=== PATIENT | male | born 1935 | race Caucasian/White ===

== ENCOUNTER 2017-06-30 17:00 | Inpatient (IN) ==
[2017-06-30] MEDS ORDERED: Ipratropium/Albuterol Neb 3 ML IH PRN (22:06)
[2017-07-01 06:51] LABS: Basophils % 0.7 %; Eosinophils # 0.1 K/mcL (0.0-0.6); Eosinophils % 1.9 %; Hematocrit 44.2 % (37.5-50.1); Hemoglobin 14.2 g/dL (12.9-16.9); Immature Granulocytes % 1.3 % (0-4); Lymphocytes # 1.3 K/mcL (0.6-4.6); Lymphocytes % 22.6 %; Mean Corpuscular HGB Conc 32.1 g/dL (31.6-35.5); Mean Corpuscular Volume 96.5 fL (83.0-100.0); Mean Platelet Volume 10.6 fL (9.4-12.4); Monocytes # 0.7 K/mcL (0.0-1.3); Monocytes % 12.1 %; Neutrophils # 3.6 K/mcL (1.6-8.9); Platelet Count 143 K/mcL (140-400); Red Blood Count 4.58 M/mcL (4.19-5.50); Segmented Neutrophils % 61.4 %
[2017-07-01 06:52] LABS: INR 2.4; Prothrombin Time 26.6 Seconds (9.4-12.1)
[2017-07-01 06:53] LABS: BUN/Creatinine Ratio 18 (6-26); Blood Urea Nitrogen 21 mg/dL (8-26); Calcium 9.3 mg/dL (8.6-10.8); Carbon Dioxide 29 mEq/L (19-29); Chloride 101 mEq/L (98-109); Glucose 163 mg/dL (70-99); Osmolality,Calculated 297 (280-300); Potassium 4.5 mEq/L (3.5-4.5); Sodium 140 mEq/L (136-145); eGFR For African Americans > 60 (> 60); eGFR For Non-African Americans 58 (> 60)
[2017-07-01 06:54] LABS: Activated Partial Thrombo Time 33.3 Seconds (26.0-36.0)
[2017-07-01] MEDS ORDERED: levoFLOXacin 750 MG TABLET PO SCH (09:00)
[2017-07-01] MEDS: Cyanocobalamin (B-12) 1,000 MCG TABLET PO SCH (09:07)
[2017-07-01] MEDS: amLODIPine 5 MG TABLET PO SCH (09:07)
[2017-07-01] MEDS: *HR* Metformin 500 MG TABLET PO SCH ×2 (09:07→18:07)
[2017-07-01] MEDS: Finasteride 5 MG TABLET PO SCH (09:08)
--- NOTE | 2017-07-01 14:08 | Internal Med History&Physical ---
Date of Encounter: 07/01/17 Time of Encounter: 14:06 Assessment and Plan (1) Cerebrovascular accident Current visit: No Status: Acute No acute issues. Patient shows no focal deficits during neurological exam. States that he still is on a dysphagia diet and continues to have some difficulty with thin liquids. Patient to continue with physical therapy and will continue with current plan of care Qualifiers: CVA mechanism: unspecified Qualified Code(s): I63.9 - Cerebral infarction, unspecified (2) BPH (benign prostatic hyperplasia) Current visit: Yes Status: Acute Patient with urinary retention during previous hospitalization after having his Martel catheter removed. Patient currently has Martel catheter in place and is awaiting follow-up with urology for further recommendations. Patient currently on Flomax Qualifiers: Lower urinary tract symptom presence: symptoms present Lower urinary tract symptom detail: incomplete bladder emptying Qualified Code(s): N40.1 - Benign prostatic hyperplasia with lower urinary tract symptoms; R39.14 - Feeling of incomplete bladder emptying; R39.14 - Feeling of incomplete bladder emptying Internal Medicine - H&P: HPI Admitted From: Home Plans for Post Hospital Care: Home History of present illness: Mr. Blackwood is a 81 year old male Past Med Surg Social Fam HX - Past Medical History Medical history: asthma, COPD, DVT, diabetes, hypertension, other (BPH) Psychiatric history: no psych history - Past Surgical History Surgical History: knee replacement - Social History Smoking Status: Unknown if ever smoked Smokeless Tobacco Status: No Alcohol use: none Drug use: none - Family History Mother History Unknown: Yes Father History Unknown: Yes Internal Medicine - H&P: Meds Atenolol [Tenormin] 50 mg PO DAILY 05/24/15 [History] Metformin HCl [Glucophage] 1,000 mg PO BID 05/24/15 [History] Montelukast [Singulair] 10 mg PO DAILY 05/24/15 [History] Rosuvastatin [Crestor] 20 mg PO DAILY 05/24/15 [History] Tamsulosin [Flomax] 0.8 mg PO DAILY 05/24/15 [History] Warfarin [Coumadin] 5 mg PO 1800 05/24/15 [History] amLODIPine [Norvasc] 5 mg PO DAILY 05/24/15 [History] Albuterol Sulfate [Albuterol Inhaler] 2 puff IH Q4HR PRN 06/25/17 [History] Cyanocobalamin (B-12) [Vitamin B12] 1,000 mcg PO DAILY 06/30/17 [History] Finasteride [Proscar] 5 mg PO DAILY 06/30/17 [History] Ipratropium/Albuterol Neb [Duoneb] 3 ml IH Q4HR PRN 06/30/17 [History] Levofloxacin [Levaquin] 750 mg PO ONCE 06/30/17 [History] 3 Allergy/AdvReac Type Severity Reaction Status Date / Time No Known Allergies Allergy Verified 06/30/17 21:53 All Systems PM: A 10-system review of systems was performed and is negative for pertinent findings except as documented above in the HPI. - Constitutional Constitutional: as per HPI - EENT Eyes: no change in vision, no discharge, no pain, no photophobia Ears: no ear discharge, no ear pain, no tinnitus Nose, mouth and throat: no dysphagia, no nasal discharge, no neck pain, no sore throat - Cardiovascular Cardiovascular ROS IM: no chest pain, no diaphoresis, no dyspnea, no lightheadedness, no palpitations, no syncope - Respiratory Respiratory: no cough, no dyspnea, no wheezing, no excessive phlegm production - Gastrointestinal Gastrointestinal: no abdominal pain, no diarrhea, no hematemesis, no hematochezia, no melena, no nausea, no vomiting - Genitourinary Additional comments: Patient states history of urinary hesitation and nocturia. States he was having urinary retention during his hospitalization. - Musculoskeletal Musculoskeletal ROS IM: no numbness, no tingling - Integumentary Integumentary IM: no rash, no unusual bruising - Neurological Neurological ROS: no confusion, no convulsions, no focal weakness, no numbness, no tingling, no tremor(s) Additional comments: Patient states he continues to have some difficulty with swallowing thin liquids. - Constitutional Vitals: Temp Pulse Resp BP Pulse Ox 97.9 F 78 16 123/80 97 07/01/17 11:35 07/01/17 11:35 07/01/17 11:35 07/01/17 11:35 07/01/17 11:35 General appearance: Present: A&O X 3 - Head Head exam: Present: atraumatic, normocephalic - Eye Eye exam: Present: PERRL, conjuntiva pink, sclera anicteric Pupils: Present: PERRL - Neck Neck exam general surgery: Present: supple, trachea midline. Absent: lymphadenopathy - Respiratory Respiratory exam: Present: CTAB. Absent: accessory muscle use, rales, rhonchi, wheezes - Cardiovascular Cardiovascular exam: Present: RRR, +S1, +S2. Absent: diastolic murmur, gallop, rubs, systolic murmur - GI/Abdominal GI/Abdominal exam: Present: normal bowel sounds, soft, no peritoneal signs. Absent: distended, tenderness - Additional comments: Patient has Martel catheter in place with clear yellow urine received - Extremities Exam Extremities exam: Present: warm, radial pulses palpable and symmetrical. Absent : calf tenderness, cyanotic, pedal edema - Neurological Exam Neurological exam: Present: CN II-XII intact, oriented X3, no focal deficits. Absent: pronater drift, facial droop, speech deficit Additional comments: Speech is clear and appropriate - Skin Skin exam: Present: dry, intact Internal Med - H&P Results - Labs CBC & Chem 7: 07/01/17 06:15 07/01/17 06:15 Labs: Short CBC 07/01/17 Range/Units 06:15 WBC 5.9 (4.3-11.1) K/mcL Hgb 14.2 (12.9-16.9) g/dL Hct 44.2 (37.5-50.1) % Plt Count 143 (140-400) K/mcL Neutrophils # 3.6 (1.6-8.9) K/mcL BMP 07/01/17 06:15 Sodium 140 Potassium 4.5 Chloride 101 Carbon Dioxide 29 BUN 21 Creatinine 1.20 Glucose 163 H Calcium 9.3 - VTE Documentation of Mechanical Device: Graduated compression elastic hosiery
[2017-07-01] MEDS: *HR* Warfarin 5 MG TABLET PO SCH (18:07)
[2017-07-02 05:45] LABS: INR 2.6; Prothrombin Time 28.6 Seconds (9.4-12.1)
[2017-07-02] MEDS: Finasteride 5 MG TABLET PO SCH (08:49)
[2017-07-02] MEDS: amLODIPine 5 MG TABLET PO SCH (08:49)
[2017-07-02] MEDS: Cyanocobalamin (B-12) 1,000 MCG TABLET PO SCH (08:49)
[2017-07-02] MEDS: *HR* Metformin 500 MG TABLET PO SCH ×2 (08:49→18:24)
--- NOTE | 2017-07-02 11:30 | Internal Med Progress Note ---
Date of Encounter: 07/02/17 Time of Encounter: 11:27 - Assessment and plan (1) Cerebrovascular accident Current Visit: No Status: Acute Assessment and plan: No acute issues. No focal neurological deficits noted on exam. Patient continues with dysphagia and is being advanced on his dysphagia diet. Patient to continue with physical therapy and will continue with current plan of care. Qualifiers: CVA mechanism: unspecified Qualified Code(s): I63.9 - Cerebral infarction, unspecified (2) BPH (benign prostatic hyperplasia) Current Visit: Yes Status: Acute Assessment and plan: Martel catheter remains in place due to urinary retention during previous hospitalization. Patient is following with urology consult today and will await further recommendations. Patient currently on Flomax. Qualifiers: Lower urinary tract symptom presence: symptoms present Lower urinary tract symptom detail: incomplete bladder emptying Qualified Code(s): N40.1 - Benign prostatic hyperplasia with lower urinary tract symptoms; R39.14 - Feeling of incomplete bladder emptying; R39.14 - Feeling of incomplete bladder emptying - Subjective Interval history: Patient appears relaxed and denies any current issues. Patient currently denies any acute neurological changes. Denies any discomforts or shortness of breath. Patient is being prepared for transporting to urology office for further evaluation of BPH and urinary retention. Patient obtains a Martel catheter in place. - Constitutional Vitals: Temp Pulse Resp BP Pulse Ox 98.5 F 86 16 120/69 91 07/02/17 07:30 07/02/17 07:30 07/02/17 07:30 07/02/17 07:30 07/02/17 07:30 General appearance: Present: A&O X 3 - Head Head exam: Present: atraumatic, normocephalic - Eye Eye exam: Present: PERRL, conjuntiva pink, sclera anicteric Pupils: Present: PERRL - Neck Neck exam general surgery: Present: supple, trachea midline. Absent: lymphadenopathy - Respiratory Respiratory exam: Present: CTAB. Absent: accessory muscle use, rales, rhonchi, wheezes Additional comments: Lungs are clear to up her mercedes and diminished throughout basilar mercedes. Denies any productive cough. - Cardiovascular Cardiovascular exam: Present: RRR, +S1, +S2. Absent: diastolic murmur, gallop, rubs, systolic murmur - GI/Abdominal GI/Abdominal exam: Present: normal bowel sounds, soft, no peritoneal signs. Absent: distended, tenderness - Additional comments: Patient has Martel catheter in place with clear yellow urine. - Extremities Exam Extremities exam: Present: warm, radial pulses palpable and symmetrical. Absent : calf tenderness, cyanotic, pedal edema - Neurological Exam Neurological exam: Present: CN II-XII intact, oriented X3, no focal deficits. Absent: pronater drift, facial droop, speech deficit Additional comments: No focal neurological deficits noted. Patient continues to have dysphagia has been progressed through a dysphagia diet - Skin Skin exam: Present: dry, intact Internal Medicine: Result - Labs CBC & Chem 7: 07/01/17 06:15 07/01/17 06:15 - ABG Interpretation ABG results: PT/INR, D-dimer PT 28.6 Seconds (9.4-12.1) H 07/02/17 05:10 - VTE Documentation of Mechanical Device: Graduated compression elastic hosiery Consult Discharge Plan - Plan Referrals: Gino Jackson DO [Primary Care Provider] -
[2017-07-02] MEDS: *HR* Warfarin 5 MG TABLET PO SCH (18:24)
[2017-07-03 05:56] LABS: INR 2.4; Prothrombin Time 26.7 Seconds (9.4-12.1)
[2017-07-03] MEDS: Cyanocobalamin (B-12) 1,000 MCG TABLET PO SCH (08:36)
[2017-07-03] MEDS: Finasteride 5 MG TABLET PO SCH (08:36)
[2017-07-03] MEDS: amLODIPine 5 MG TABLET PO SCH (08:36)
[2017-07-03] MEDS: *HR* Metformin 500 MG TABLET PO SCH ×2 (08:36→18:11)
--- NOTE | 2017-07-03 12:32 | Internal Med Progress Note ---
Date of Encounter: 07/03/17 Time of Encounter: 12:30 - Assessment and plan (1) BPH (benign prostatic hyperplasia) Current Visit: Yes Status: Acute Assessment and plan: Martel catheter persists. He is to keep in for another couple of days, per urology, then to have trial of catheer removal on 07-05-17..Will check UA in anticipation of that. Qualifiers: Lower urinary tract symptom presence: symptoms present Lower urinary tract symptom detail: incomplete bladder emptying Qualified Code(s): N40.1 - Benign prostatic hyperplasia with lower urinary tract symptoms; R39.14 - Feeling of incomplete bladder emptying; R39.14 - Feeling of incomplete bladder emptying (2) Physical deconditioning Current Visit: Yes Status: Acute Assessment and plan: Therapy and strengethening to persist. (3) Nausea Current Visit: Yes Status: Acute Assessment and plan: Uncertain etiology. We began ondansetron PRN and will follow. Hoopefully, resolved. (4) Delirium Current Visit: Yes Status: Acute Assessment and plan: Seenso have resolved. - Subjective Interval history: Woke up this morning with nausea and worse when he tried to ett. No emesis. Denies abdominal pain, fever, chest discomfort, etc. He states the naea is improving. Remained of ROS is unremarkable, now. - Constitutional Vitals: Temp Pulse Resp BP Pulse Ox 98.1 F 98 16 141/96 92 07/03/17 08:15 07/03/17 08:15 07/03/17 08:15 07/03/17 08:15 07/03/17 08:15 General appearance: Present: A&O X 3, answers questions appropriately - Head Head exam: Present: atraumatic, normocephalic - Eye Eye exam: Present: EOMI, PERRL. Absent: conjunctival injection, nystagmus - Neck Neck exam general surgery: Present: full ROM, normal inspection - Respiratory Respiratory exam: Present: CTAB. Absent: accessory muscle use - Cardiovascular Cardiovascular exam: Present: RRR. Absent: systolic murmur - GI/Abdominal GI/Abdominal exam: Present: normal bowel sounds. Absent: distended, hepatomegaly, splenomegaly, tenderness Additional comments: Examined in chair and he is obese which makes palpation difficult. - Extremities Exam Extremities exam: Present: normal capillary refill. Absent: calf tenderness, pedal edema, tenderness - Neurological Exam Neurological exam: Present: CN II-XII intact, oriented X3. Absent: facial droop - Psychiatric Psychiatric exam: Present: normal affect, normal mood Internal Medicine: Result - Labs CBC & Chem 7: 07/01/17 06:15 07/01/17 06:15 - ABG Interpretation ABG results: PT/INR, D-dimer PT 26.7 Seconds (9.4-12.1) H 07/03/17 05:30 - VTE Documentation of Mechanical Device: Graduated compression elastic hosiery Consult Discharge Plan - Plan Referrals: Gino Jackson DO [Primary Care Provider] -
[2017-07-03] MEDS ORDERED: Ondansetron 4 MG/2 ML VIAL IVP PRN (12:34)
[2017-07-03] MEDS ORDERED: Ondansetron Oral Soln 2 MG/2.5 ML ORAL.SYG PO PRN ×2 (12:41→12:43)
[2017-07-03] MEDS: *HR* Warfarin 5 MG TABLET PO SCH (18:11)
[2017-07-03 19:58] LABS: Bilirubin,Urine Negative (Negative); Blood,Urine Large (Negative); Clarity,Urine Clear (Clear); Color,Urine Yellow (Yellow); Glucose,Urine (UA) Normal (Normal); Ketones,Urine Negative (Negative); Leukocyte Esterase,Urine Negative (Negative); Nitrite,Urine Negative (Negative); PH,Urine 5.5 pH Units (5.0-8.0); Protein,Urine 30 mg/dL (Neg-Trace); Specific Gravity,Urine 1.025 (1.010-1.025); Urobilinogen,Urine Normal (Normal)
[2017-07-03 20:08] LABS: RBC,Urine TNTC per hpf (0-3); Squamous Epithelial Cell,Urine Few per lpf (None-Few); WBC,Urine 0-3 per hpf (0-3)
[2017-07-03 20:09] LABS: Bacteria,Urine Few per hpf (None-Few)
[2017-07-04 05:29] LABS: INR 2.7; Prothrombin Time 29.3 Seconds (9.4-12.1)
[2017-07-04 05:40] LABS: BUN/Creatinine Ratio 22 (6-26); Blood Urea Nitrogen 24 mg/dL (8-26); Calcium 8.5 mg/dL (8.6-10.8); Carbon Dioxide 28 mEq/L (19-29); Chloride 101 mEq/L (98-109); Glucose 133 mg/dL (70-99); Osmolality,Calculated 292 (280-300); Potassium 4.4 mEq/L (3.5-4.5); Sodium 138 mEq/L (136-145); eGFR For African Americans > 60 (> 60); eGFR For Non-African Americans > 60 (> 60)
[2017-07-04] MEDS: *HR* Metformin 500 MG TABLET PO SCH ×2 (07:50→17:18)
[2017-07-04] MEDS: amLODIPine 5 MG TABLET PO SCH (07:50)
[2017-07-04] MEDS: Cyanocobalamin (B-12) 1,000 MCG TABLET PO SCH (07:51)
[2017-07-04] MEDS: Finasteride 5 MG TABLET PO SCH (07:51)
--- NOTE | 2017-07-04 14:24 | Internal Med Progress Note ---
Date of Encounter: 07/04/17 Time of Encounter: 14:20 - Assessment and plan (1) BPH (benign prostatic hyperplasia) Current Visit: Yes Status: Acute Assessment and plan: For catheter removal trial, tomorrow. Qualifiers: Lower urinary tract symptom presence: symptoms present Lower urinary tract symptom detail: incomplete bladder emptying Qualified Code(s): N40.1 - Benign prostatic hyperplasia with lower urinary tract symptoms; R39.14 - Feeling of incomplete bladder emptying; R39.14 - Feeling of incomplete bladder emptying (2) Physical deconditioning Current Visit: Yes Status: Acute Assessment and plan: Therapy and strengethening to persist. (3) Nausea Current Visit: Yes Status: Acute Assessment and plan: Resolved, symptomatically. (4) Delirium Current Visit: Yes Status: Acute Assessment and plan: Resolved. - Subjective Interval history: Doing well, feels as if he is turning the corner. Feels that hisstrength has improved. Had a good BM yesterday. Remained of ROS is unremarkable, now. - Constitutional Vitals: Temp Pulse Resp BP Pulse Ox 98.0 F 82 18 124/61 92 07/04/17 06:00 07/04/17 06:00 07/04/17 06:00 07/04/17 06:00 07/04/17 06:00 General appearance: Present: A&O X 3, answers questions appropriately - Respiratory Respiratory exam: Present: CTAB. Absent: accessory muscle use - Cardiovascular Cardiovascular exam: Present: RRR. Absent: systolic murmur - GI/Abdominal GI/Abdominal exam: Present: normal bowel sounds. Absent: hepatomegaly, splenomegaly, tenderness Additional comments: Obese and therefore difficult to palpate deeply. - Extremities Exam Extremities exam: Present: normal inspection. Absent: calf tenderness Internal Medicine: Result - Labs CBC & Chem 7: 07/01/17 06:15 07/04/17 04:55 Labs: BMP 07/04/17 04:55 Sodium 138 Potassium 4.4 Chloride 101 Carbon Dioxide 28 BUN 24 Creatinine 1.10 Glucose 133 H Calcium 8.5 L Urine 07/03/17 Range/Units 19:33 Urine Color Yellow (Yellow) Urine Clarity Clear (Clear) Urine pH 5.5 (5.0-8.0) pH Units Ur Specific [place] 1.025 (1.010-1.025) Urine Protein 30 H (Neg-Trace) mg/dL Urine Glucose (UA) Normal (Normal) mg/dL - ABG Interpretation ABG results: PT/INR, D-dimer PT 29.3 Seconds (9.4-12.1) H 07/04/17 04:55 - VTE Documentation of Mechanical Device: Graduated compression elastic hosiery Consult Discharge Plan - Plan Referrals: Gino Jackson DO [Primary Care Provider] -
[2017-07-04] MEDS: *HR* Warfarin 5 MG TABLET PO SCH (17:18)
[2017-07-05 05:03] LABS: Basophils % 0.6 %; Eosinophils # 0.2 K/mcL (0.0-0.6); Eosinophils % 2.2 %; Hematocrit 41.4 % (37.5-50.1); Hemoglobin 13.4 g/dL (12.9-16.9); Immature Granulocytes % 0.9 % (0-4); Lymphocytes # 1.6 K/mcL (0.6-4.6); Lymphocytes % 24.6 %; Mean Corpuscular HGB Conc 32.4 g/dL (31.6-35.5); Mean Corpuscular Hemoglobin 31.4 pg (28.0-33.3); Mean Platelet Volume 10.5 fL (9.4-12.4); Monocytes # 0.7 K/mcL (0.0-1.3); Monocytes % 11.1 %; Platelet Count 122 K/mcL (140-400); Red Blood Count 4.27 M/mcL (4.19-5.50); Segmented Neutrophils % 60.6 %
[2017-07-05 05:05] LABS: INR 3.2; Prothrombin Time 35.6 Seconds (9.4-12.1)
[2017-07-05 05:19] LABS: BUN/Creatinine Ratio 17 (6-26); Blood Urea Nitrogen 18 mg/dL (8-26); Calcium 8.7 mg/dL (8.6-10.8); Carbon Dioxide 29 mEq/L (19-29); Chloride 103 mEq/L (98-109); Glucose 142 mg/dL (70-99); Osmolality,Calculated 290 (280-300); Potassium 4.6 mEq/L (3.5-4.5); Sodium 138 mEq/L (136-145); eGFR For African Americans > 60 (> 60); eGFR For Non-African Americans > 60 (> 60)
[2017-07-05] MEDS: Cyanocobalamin (B-12) 1,000 MCG TABLET PO SCH (08:31)
[2017-07-05] MEDS: *HR* Metformin 500 MG TABLET PO SCH ×2 (08:31→18:08)
[2017-07-05] MEDS: Finasteride 5 MG TABLET PO SCH (08:31)
[2017-07-05] MEDS: amLODIPine 5 MG TABLET PO SCH (08:31)
--- NOTE | 2017-07-05 13:39 | Internal Med Progress Note ---
Date of Encounter: 07/05/17 Time of Encounter: 13:37 - Assessment and plan (1) BPH (benign prostatic hyperplasia) Current Visit: Yes Status: Acute Assessment and plan: coy d/c'd this am. will monitor. Qualifiers: Lower urinary tract symptom presence: symptoms present Lower urinary tract symptom detail: incomplete bladder emptying Qualified Code(s): N40.1 - Benign prostatic hyperplasia with lower urinary tract symptoms; R39.14 - Feeling of incomplete bladder emptying; R39.14 - Feeling of incomplete bladder emptying (2) Physical deconditioning Current Visit: Yes Status: Acute Assessment and plan: progressing well with therapy. plan to work with stairs. continue PT/OT and will follow progress. - Time Spent With Patient less than 15 minutes - Subjective Interval history: participating well with therapy. states feeling stronger. denies any issues or pain. coy cath d/c'd today. will monitor. - Constitutional Vitals: Temp Pulse Resp BP Pulse Ox 98.4 F 91 18 120/70 93 07/05/17 07:56 07/05/17 07:56 07/05/17 07:56 07/05/17 07:56 07/05/17 07:56 General appearance: Present: A&O X 3, obese, answers questions appropriately - Head Head exam: Present: atraumatic, normocephalic - Eye Eye exam: Present: PERRL, conjuntiva pink, sclera anicteric Pupils: Present: PERRL - Neck Neck exam general surgery: Present: supple, trachea midline. Absent: lymphadenopathy - Respiratory Respiratory exam: Present: CTAB. Absent: accessory muscle use, rales, rhonchi, wheezes - Cardiovascular Cardiovascular exam: Present: RRR, +S1, +S2. Absent: diastolic murmur, gallop, rubs, systolic murmur - GI/Abdominal GI/Abdominal exam: Present: normal bowel sounds, soft, no peritoneal signs. Absent: distended, tenderness - Extremities Exam Extremities exam: Present: warm, radial pulses palpable and symmetrical. Absent : calf tenderness, cyanotic, pedal edema - Neurological Exam Neurological exam: Present: CN II-XII intact, oriented X3, no focal deficits. Absent: pronater drift, facial droop, speech deficit - Skin Skin exam: Present: dry, intact Internal Medicine: Result - Labs CBC & Chem 7: 07/05/17 04:55 07/05/17 04:55 Labs: Short CBC 07/05/17 Range/Units 04:55 WBC 6.7 (4.3-11.1) K/mcL Hgb 13.4 (12.9-16.9) g/dL Hct 41.4 (37.5-50.1) % Plt Count 122 L (140-400) K/mcL Neutrophils # 4.0 (1.6-8.9) K/mcL BMP 07/05/17 04:55 Sodium 138 Potassium 4.6 H Chloride 103 Carbon Dioxide 29 BUN 18 Creatinine 1.09 Glucose 142 H Calcium 8.7 - ABG Interpretation ABG results: PT/INR, D-dimer PT 35.6 Seconds (9.4-12.1) H 07/05/17 04:55 - VTE Documentation of Mechanical Device: Graduated compression elastic hosiery Consult Discharge Plan - Plan Referrals: Gino Jackson DO [Primary Care Provider] -
[2017-07-05] MEDS ORDERED: *HR* Warfarin 2.5 MG TABLET PO SCH (18:00)
[2017-07-05] MEDS ORDERED: *HR* Warfarin 2.5 MG TABLET PO ONE (18:00)
[2017-07-06 06:22] LABS: INR 3.4; Prothrombin Time 37.6 Seconds (9.4-12.1)
[2017-07-06] MEDS: *HR* Metformin 500 MG TABLET PO SCH ×2 (07:52→17:14)
[2017-07-06] MEDS: amLODIPine 5 MG TABLET PO SCH (07:52)
[2017-07-06] MEDS: Cyanocobalamin (B-12) 1,000 MCG TABLET PO SCH (07:52)
[2017-07-06] MEDS: Finasteride 5 MG TABLET PO SCH (07:53)
--- NOTE | 2017-07-06 12:02 | Internal Med Progress Note ---
Date of Encounter: 07/06/17 Time of Encounter: 12:00 - Assessment and plan (1) BPH (benign prostatic hyperplasia) Current Visit: Yes Status: Acute Assessment and plan: coy cath placed last night after trial without. has f/u with urologist. will monitor. Qualifiers: Lower urinary tract symptom presence: symptoms present Lower urinary tract symptom detail: incomplete bladder emptying Qualified Code(s): N40.1 - Benign prostatic hyperplasia with lower urinary tract symptoms; R39.14 - Feeling of incomplete bladder emptying; R39.14 - Feeling of incomplete bladder emptying (2) Physical deconditioning Current Visit: Yes Status: Acute Assessment and plan: progressing well with therapy. plan to work with stairs. continue PT/OT and will follow progress. - Time Spent With Patient less than 15 minutes - Subjective Interval history: coy cath placed last night after urinary retention and pain. has f/u scheduled with urologist. participating well with therapy. states feeling stronger. denies any issues or pain. - Constitutional Vitals: Temp Pulse Resp BP Pulse Ox 98.5 F 84 18 136/68 90 07/06/17 07:00 07/06/17 07:00 07/05/17 19:20 07/06/17 07:00 07/06/17 07:00 General appearance: Present: A&O X 3, obese, answers questions appropriately - Head Head exam: Present: atraumatic, normocephalic - Eye Eye exam: Present: PERRL, conjuntiva pink, sclera anicteric Pupils: Present: PERRL - Neck Neck exam general surgery: Present: supple, trachea midline. Absent: lymphadenopathy - Respiratory Respiratory exam: Present: CTAB. Absent: accessory muscle use, rales, rhonchi, wheezes - Cardiovascular Cardiovascular exam: Present: RRR, +S1, +S2. Absent: diastolic murmur, gallop, rubs, systolic murmur - GI/Abdominal GI/Abdominal exam: Present: normal bowel sounds, soft, no peritoneal signs. Absent: distended, tenderness - Extremities Exam Extremities exam: Present: warm, radial pulses palpable and symmetrical. Absent : calf tenderness, cyanotic, pedal edema - Neurological Exam Neurological exam: Present: CN II-XII intact, oriented X3, no focal deficits. Absent: pronater drift, facial droop, speech deficit - Skin Skin exam: Present: dry, intact Internal Medicine: Result - Labs CBC & Chem 7: 07/05/17 04:55 07/05/17 04:55 - ABG Interpretation ABG results: PT/INR, D-dimer PT 37.6 Seconds (9.4-12.1) H 07/06/17 05:00 - VTE Documentation of Mechanical Device: Graduated compression elastic hosiery Consult Discharge Plan - Plan Referrals: Gino Jackson DO [Primary Care Provider] -
[2017-07-06] MEDS ORDERED: Warfarin perPT PO PRN (18:00)
[2017-07-07 05:46] LABS: INR 2.9; Prothrombin Time 32.2 Seconds (9.4-12.1)
[2017-07-07] MEDS: *HR* Metformin 500 MG TABLET PO SCH ×2 (08:30→16:46)
[2017-07-07] MEDS: amLODIPine 5 MG TABLET PO SCH (08:30)
[2017-07-07] MEDS: Finasteride 5 MG TABLET PO SCH (08:30)
[2017-07-07] MEDS: Cyanocobalamin (B-12) 1,000 MCG TABLET PO SCH (08:31)
--- NOTE | 2017-07-07 14:28 | Internal Med Progress Note ---
Date of Encounter: 07/07/17 Time of Encounter: 14:26 - Assessment and plan (1) Cerebrovascular accident Current Visit: No Status: Inactive Assessment and plan: No acute issues. No focal neurological deficits noted on exam. Patient to continue with physical therapy and will continue with current plan of care. Qualifiers: CVA mechanism: embolism Precerebral and cerebral artery: unspecified cerebral artery Qualified Code(s): I63.40 - Cerebral infarction due to embolism of unspecified cerebral artery (2) BPH (benign prostatic hyperplasia) Current Visit: Yes Status: Acute Assessment and plan: Patient continues with Martel catheter in place per urology. Patient will be discharged home with Martel catheter and is showing progress and teaching of Martel care. Patient to continue follow-up with urology after discharge.. Qualifiers: Lower urinary tract symptom presence: symptoms present Lower urinary tract symptom detail: incomplete bladder emptying Qualified Code(s): N40.1 - Benign prostatic hyperplasia with lower urinary tract symptoms; R39.14 - Feeling of incomplete bladder emptying; R39.14 - Feeling of incomplete bladder emptying - Subjective Interval history: Patient appears relaxed and denies any current issues. Patient currently denies any acute neurological changes. Denies any discomforts or shortness of breath. Patient is being prepared for discharge tomorrow. Patient currently showing proficiency and changing leg bag as he will be discharged with his Martel catheter in place - Constitutional Vitals: Temp Pulse Resp BP Pulse Ox 98.4 F 81 16 169/70 91 07/07/17 08:00 07/07/17 08:00 07/07/17 08:00 07/07/17 08:00 07/07/17 08:00 General appearance: Present: A&O X 3, obese, answers questions appropriately - Head Head exam: Present: atraumatic, normocephalic - Eye Eye exam: Present: PERRL, conjuntiva pink, sclera anicteric Pupils: Present: PERRL - Neck Neck exam general surgery: Present: supple, trachea midline. Absent: lymphadenopathy - Respiratory Respiratory exam: Present: CTAB. Absent: accessory muscle use, rales, rhonchi, wheezes - Cardiovascular Cardiovascular exam: Present: RRR, +S1, +S2. Absent: diastolic murmur, gallop, rubs, systolic murmur - GI/Abdominal GI/Abdominal exam: Present: normal bowel sounds, soft, no peritoneal signs. Absent: distended, tenderness - Additional comments: Martel catheter in place with clear yellow urine being received - Extremities Exam Extremities exam: Present: warm, radial pulses palpable and symmetrical. Absent : calf tenderness, cyanotic, pedal edema - Neurological Exam Neurological exam: Present: CN II-XII intact, oriented X3, no focal deficits. Absent: pronater drift, facial droop, speech deficit - Skin Skin exam: Present: dry, intact Internal Medicine: Result - Labs CBC & Chem 7: 07/05/17 04:55 07/05/17 04:55 - ABG Interpretation ABG results: PT/INR, D-dimer PT 32.2 Seconds (9.4-12.1) H 07/07/17 05:25 - VTE Documentation of Mechanical Device: Graduated compression elastic hosiery Consult Discharge Plan - Plan Referrals: Gino Jackson DO [Primary Care Provider] -
[2017-07-07] MEDS ORDERED: *HR* Warfarin 2.5 MG TABLET PO ONE (18:00)
[2017-07-08 05:59] LABS: INR 2.2; Prothrombin Time 23.8 Seconds (9.4-12.1)
[2017-07-08 06:51] VITALS: BP 118/74
[2017-07-08] MEDS ORDERED: FLUARIX QUAD 2017-18 36MOS UP/PF 0.5 ML SYRINGE IM ONE (07:50)
[2017-07-08] MEDS: *HR* Metformin 500 MG TABLET PO SCH (07:58)
[2017-07-08] MEDS: amLODIPine 5 MG TABLET PO SCH (07:58)
[2017-07-08] MEDS: Finasteride 5 MG TABLET PO SCH (07:58)
[2017-07-08] MEDS: Cyanocobalamin (B-12) 1,000 MCG TABLET PO SCH (07:58)
--- NOTE | 2017-07-08 11:15 | Internal Med Progress Note ---
Date of Encounter: 07/08/17 Time of Encounter: 11:11 - Assessment and plan (1) BPH (benign prostatic hyperplasia) Current Visit: Yes Status: Acute Assessment and plan: Patient continues with Martel catheter in place per urology. Patient will be discharged home with Martel catheter and is showing progress and teaching of Martel care. Patient to continue follow-up with urology after discharge.. Qualifiers: Lower urinary tract symptom presence: symptoms present Lower urinary tract symptom detail: incomplete bladder emptying Qualified Code(s): N40.1 - Benign prostatic hyperplasia with lower urinary tract symptoms; R39.14 - Feeling of incomplete bladder emptying; R39.14 - Feeling of incomplete bladder emptying (2) Physical deconditioning Current Visit: Yes Status: Acute Assessment and plan: progressing well with therapy. working on stairs. continue PT/OT and will follow progress. - Time Spent With Patient less than 15 minutes - Subjective Interval history: participating well with therapy. states feeling stronger and more confident. working with stairs in therapy. denies any issues or pain. - Constitutional Vitals: Temp Pulse Resp BP Pulse Ox 97.6 F 80 18 118/74 92 07/08/17 06:00 07/08/17 06:00 07/08/17 06:00 07/08/17 06:00 07/08/17 06:00 General appearance: Present: A&O X 3, obese, answers questions appropriately - Head Head exam: Present: atraumatic, normocephalic - Eye Eye exam: Present: PERRL, conjuntiva pink, sclera anicteric Pupils: Present: PERRL - Neck Neck exam general surgery: Present: supple, trachea midline. Absent: lymphadenopathy - Respiratory Respiratory exam: Present: CTAB. Absent: accessory muscle use, rales, rhonchi, wheezes - Cardiovascular Cardiovascular exam: Present: RRR, +S1, +S2. Absent: diastolic murmur, gallop, rubs, systolic murmur - GI/Abdominal GI/Abdominal exam: Present: normal bowel sounds, soft, no peritoneal signs. Absent: distended, tenderness - Extremities Exam Extremities exam: Present: warm, radial pulses palpable and symmetrical. Absent : calf tenderness, cyanotic, pedal edema - Neurological Exam Neurological exam: Present: CN II-XII intact, oriented X3, no focal deficits. Absent: pronater drift, facial droop, speech deficit - Skin Skin exam: Present: dry, intact Internal Medicine: Result - Labs CBC & Chem 7: 07/05/17 04:55 07/05/17 04:55 - ABG Interpretation ABG results: PT/INR, D-dimer PT 23.8 Seconds (9.4-12.1) H 07/08/17 05:51 - VTE Documentation of Mechanical Device: Graduated compression elastic hosiery Consult Discharge Plan - Plan Referrals: Gino Jackson DO [Primary Care Provider] -
--- NOTE | 2017-07-08 13:24 | Discharge Summary ---
Date of Encounter: 07/08/17 Time of Encounter: 13:21 - Discharge Diagnosis (1) BPH (benign prostatic hyperplasia) Priority: Primary Status: Acute Comments: scheduled to follow up with urologist. will discharge with coy cath. has been taught how to care for. Qualifiers: Lower urinary tract symptom presence: symptoms present Lower urinary tract symptom detail: incomplete bladder emptying Qualified Code(s): N40.1 - Benign prostatic hyperplasia with lower urinary tract symptoms; R39.14 - Feeling of incomplete bladder emptying; R39.14 - Feeling of incomplete bladder emptying (2) Physical deconditioning Priority: Secondary Status: Resolved Comments: improved and stable from PT/OT - Discharge Medications Home Medications: Atenolol [Tenormin] 50 mg PO DAILY 05/24/15 [History] Metformin HCl [Glucophage] 1,000 mg PO BID 05/24/15 [History] Montelukast [Singulair] 10 mg PO DAILY 05/24/15 [History] Rosuvastatin [Crestor] 20 mg PO DAILY 05/24/15 [History] Tamsulosin [Flomax] 0.8 mg PO DAILY 05/24/15 [History] Warfarin [Coumadin] 5 mg PO 1800 05/24/15 [History] amLODIPine [Norvasc] 5 mg PO DAILY 05/24/15 [History] Albuterol Sulfate [Albuterol Inhaler] 2 puff IH Q4HR PRN 06/25/17 [History] Cyanocobalamin (B-12) [Vitamin B12] 1,000 mcg PO DAILY 06/30/17 [History] Finasteride [Proscar] 5 mg PO DAILY 06/30/17 [History] Ipratropium/Albuterol Neb [Duoneb] 3 ml IH Q4HR PRN 06/30/17 [History] Levofloxacin [Levaquin] 750 mg PO ONCE 06/30/17 [History] Allergies/Adverse Reactions: 3 Allergy/AdvReac Type Severity Reaction Status Date / Time No Known Allergies Allergy Verified 06/30/17 21:53 Date of admission: 06/30/17 18:43 Primary care physician: Gino Jackson Consults: 06/30/17 22:09 Consult to Occupational Therapy [CONS] Routine Comment: Evaluate, develop and implement POC Reason for Consult: eval and treat Consult to Physical Therapy [CONS] Routine Comment: Evaluate, develop and implement POC Reason for Consult: eval and treat Consult to Recreational Therapy [CONS] Routine Comment: Evaluate, develop and implement POC Consult to Weatherseal Technician [CONS] Routine Reason for SW Consult: altered mental status Discharging clinician: Karyn Bassett Anticipated date of discharge: 07/08/17 - Patient Status Disposition: Home, Self-Care Condition: Good Functional capacity at discharge: uses cane/walker Overall status at discharge: patient is back to baseline - Discharge Instructions Follow Up With: Gino Jackson DO [Primary Care Provider] - - Diet and Activity Activity: increase activity as tolerated, resume usual activities as tolerated Diet: regular diet Interval History: progressed well with therapy. discharging to home. medically stable. will follow up with urology for urinary retention. Hospital course: Mr. Blackwood is a 81 year old male - Time Spent with Patient Total time spent providing and/or coordinating discharge services: Less than 30 minutes - Constitutional Vitals: Temp Pulse Resp BP Pulse Ox 97.6 F 80 18 118/74 92 07/08/17 06:00 07/08/17 06:00 07/08/17 06:00 07/08/17 06:00 07/08/17 06:00 General appearance: Present: A&O X 3, obese, answers questions appropriately - Head Head exam: Present: atraumatic, normocephalic - Eye Eye exam: Present: PERRL, conjuntiva pink, sclera anicteric Pupils: Present: PERRL - Neck Neck exam general surgery: Present: supple, trachea midline. Absent: lymphadenopathy - Respiratory Respiratory exam: Present: CTAB. Absent: accessory muscle use, rales, rhonchi, wheezes - Cardiovascular Cardiovascular exam: Present: RRR, +S1, +S2. Absent: diastolic murmur, gallop, rubs, systolic murmur - GI/Abdominal GI/Abdominal exam: Present: normal bowel sounds, soft, no peritoneal signs. Absent: distended, tenderness - Extremities Exam Extremities exam: Present: warm, radial pulses palpable and symmetrical. Absent : calf tenderness, cyanotic, pedal edema - Neurological Exam Neurological exam: Present: CN II-XII intact, oriented X3, no focal deficits. Absent: pronater drift, facial droop, speech deficit - Skin Skin exam: Present: dry, intact - VTE Documentation of Mechanical Device: Graduated compression elastic hosiery
[2017-07-08] MEDS ORDERED: *HR* Warfarin 2.5 MG TABLET PO ONE (18:00)
== END 2017-07-08 14:06 | disposition home or self-care (01) | DRG 556 ==
LOC: INPGRE 18:43
PROVIDERS: ADMIT Internal Medicine; ATTEND Internal Medicine

== ENCOUNTER 2021-08-01 14:38 | Inpatient (IN) ==
[2021-08-04] MEDS ORDERED: *HR* OxyCODONE Immed Rel 5 MG TABLET PO PRN (20:22)
[2021-08-04] MEDS ORDERED: *HR* Dextrose 50 % in Water (Syg) 50 ML SYRINGE IVP PRN (20:28)
[2021-08-04] MEDS ORDERED: Dextrose Gel 15 GM/37.5 ML TUBE PO PRN ×2 (20:28)
[2021-08-04] MEDS ORDERED: D5% in Water 1,000 ML IVC PRN (20:28)
[2021-08-04] MEDS: *HR* OxyCODONE/APAP 5/325 TABLET PO PRN (21:34)
[2021-08-04] MEDS: amLODIPine 5 MG TABLET PO SCH (21:34)
[2021-08-05] MEDS: Acetaminophen 325 MG TABLET PO SCH ×4 (00:35→17:34)
[2021-08-05] MEDS: Ipratropium/Albuterol Neb 3 ML IH SCH ×4 (02:35→19:41)
[2021-08-05 05:03] LABS: Basophils % 0.4 %; Eosinophils # 0.1 K/mcL (0.0-0.6); Eosinophils % 0.7 %; Hemoglobin 15.2 g/dL (12.9-16.9); Immature Granulocytes % 0.9 % (0-4); Lymphocytes # 1.4 K/mcL (0.6-4.6); Mean Corpuscular HGB Conc 31.7 g/dL (31.6-35.5); Mean Corpuscular Hemoglobin 29.6 pg (28.0-33.3); Mean Corpuscular Volume 93.4 fL (83.0-100.0); Mean Platelet Volume 11.8 fL (9.4-12.4); Monocytes # 1.1 K/mcL (0.0-1.3); Monocytes % 10.9 %; Neutrophils # 7.1 K/mcL (1.6-8.9); Platelet Count 152 K/mcL (140-400); Red Blood Count 5.14 M/mcL (4.19-5.50); Red Cell Distribution Width 15.2 % (11.5-14.5); Segmented Neutrophils % 73.1 %; White Blood Count 9.7 K/mcL (4.3-11.1)
[2021-08-05 05:06] LABS: Prothrombin Time 33.7 Seconds (9.4-12.1)
[2021-08-05 05:19] LABS: BUN/Creatinine Ratio 20 (6-26); Blood Urea Nitrogen 21 mg/dL (8-23); Calcium 8.8 mg/dL (8.6-10.3); Carbon Dioxide 34 mEq/L (23-29); Chloride 97 mEq/L (98-107); Glucose 162 mg/dL (70-105); Osmolality,Calculated 287 (280-300); Potassium 4.9 mEq/L (3.5-5.1); Sodium 135 mEq/L (136-145); eGFR For African Americans > 60 (> 60); eGFR For Non-African Americans > 60 (> 60)
[2021-08-05] MEDS ORDERED: *HR* Enoxaparin 40 MG/0.4 ML SYRINGE SQ SCH (07:00)
[2021-08-05] MEDS: Insulin LISPRO 300 UNITS/3 ML VIAL SUBQ SCH ×3 (07:42→16:39)
[2021-08-05] MEDS: *HR* OxyCODONE/APAP 5/325 TABLET PO PRN ×2 (07:43→20:53)
[2021-08-05] MEDS: polyethylene glycoL 3350 17 GM POWD.PACK PO SCH (08:32)
[2021-08-05 10:27] LABS: Estimated Average Glucose 192 mg/dl; Hemoglobin A1C 8.3 %
[2021-08-05] MEDS ORDERED: *HR* Warfarin 5 MG TABLET PO SCH (18:00)
[2021-08-05] MEDS: Melatonin 3 MG TABLET PO PRN (20:52)
[2021-08-05] MEDS: amLODIPine 5 MG TABLET PO SCH (20:53)
[2021-08-06] MEDS: Acetaminophen 325 MG TABLET PO SCH ×4 (00:44→17:35)
[2021-08-06] MEDS: Ipratropium/Albuterol Neb 3 ML IH SCH ×2 (03:27→06:32)
[2021-08-06] MEDS: *HR* OxyCODONE/APAP 5/325 TABLET PO PRN (09:08)
[2021-08-06] MEDS: polyethylene glycoL 3350 17 GM POWD.PACK PO SCH (09:10)
[2021-08-06] MEDS: Insulin LISPRO 300 UNITS/3 ML VIAL SUBQ SCH ×3 (09:13→17:27)
[2021-08-06] MEDS ORDERED: Ipratropium/Albuterol Neb 3 ML IH PRN (09:29)
[2021-08-06 15:18] LABS: INR 3.8; Prothrombin Time 42.4 Seconds (9.4-12.1)
[2021-08-06] MEDS ORDERED: Warfarin perPT PO PRN (18:00)
[2021-08-06] MEDS: amLODIPine 5 MG TABLET PO SCH (20:38)
[2021-08-07] MEDS: Acetaminophen 325 MG TABLET PO SCH ×4 (00:47→18:34)
[2021-08-07 07:47] LABS: INR 3.4; Prothrombin Time 37.4 Seconds (9.4-12.1)
[2021-08-07] MEDS: Insulin LISPRO 300 UNITS/3 ML VIAL SUBQ SCH ×3 (09:21→17:29)
[2021-08-07] MEDS: *HR* OxyCODONE/APAP 5/325 TABLET PO PRN (09:21)
[2021-08-07] MEDS: polyethylene glycoL 3350 17 GM POWD.PACK PO SCH (09:22)
[2021-08-07] MEDS: amLODIPine 5 MG TABLET PO SCH (20:17)
[2021-08-08] MEDS: Acetaminophen 325 MG TABLET PO SCH ×4 (00:07→17:26)
[2021-08-08 06:47] LABS: INR 2.9; Prothrombin Time 31.8 Seconds (9.4-12.1)
[2021-08-08] MEDS: *HR* OxyCODONE/APAP 5/325 TABLET PO PRN ×2 (07:44→21:01)
[2021-08-08] MEDS: polyethylene glycoL 3350 17 GM POWD.PACK PO SCH (07:44)
[2021-08-08] MEDS: Insulin LISPRO 300 UNITS/3 ML VIAL SUBQ SCH ×3 (07:45→17:36)
[2021-08-08] MEDS ORDERED: *HR* Warfarin 1 MG TABLET PO ONE (18:00)
[2021-08-08] MEDS: amLODIPine 5 MG TABLET PO SCH (21:01)
[2021-08-08] MEDS: Melatonin 3 MG TABLET PO PRN (21:01)
[2021-08-09] MEDS: Acetaminophen 325 MG TABLET PO SCH ×4 (01:18→18:12)
[2021-08-09 05:42] LABS: INR 2.1; Prothrombin Time 22.8 Seconds (9.4-12.1)
[2021-08-09] MEDS: polyethylene glycoL 3350 17 GM POWD.PACK PO SCH (07:48)
[2021-08-09] MEDS: *HR* OxyCODONE/APAP 5/325 TABLET PO PRN ×2 (07:48→21:03)
[2021-08-09] MEDS: Insulin LISPRO 300 UNITS/3 ML VIAL SUBQ SCH ×3 (09:24→18:13)
[2021-08-09] MEDS ORDERED: *HR* Warfarin 5 MG TABLET PO ONE (18:00)
[2021-08-09] MEDS: Sennosides/Docusate Sodium TABLET PO PRN (21:03)
[2021-08-09] MEDS: Melatonin 3 MG TABLET PO PRN (21:03)
[2021-08-09] MEDS: amLODIPine 5 MG TABLET PO SCH (21:03)
[2021-08-10] MEDS: Acetaminophen 325 MG TABLET PO SCH ×4 (01:07→17:43)
[2021-08-10 06:02] LABS: INR 1.9; Prothrombin Time 20.6 Seconds (9.4-12.1)
[2021-08-10] MEDS: Insulin LISPRO 300 UNITS/3 ML VIAL SUBQ SCH ×3 (08:05→17:38)
[2021-08-10] MEDS: polyethylene glycoL 3350 17 GM POWD.PACK PO SCH (08:06)
[2021-08-10] MEDS ORDERED: *HR* Warfarin 5 MG TABLET PO ONE (18:00)
[2021-08-10] MEDS: Sennosides/Docusate Sodium TABLET PO PRN (20:21)
[2021-08-10] MEDS: Melatonin 3 MG TABLET PO PRN (20:22)
[2021-08-10] MEDS: amLODIPine 5 MG TABLET PO SCH (20:22)
[2021-08-10] MEDS: *HR* OxyCODONE/APAP 5/325 TABLET PO PRN (20:28)
[2021-08-11] MEDS: Acetaminophen 325 MG TABLET PO SCH ×5 (05:07→23:32)
[2021-08-11 05:14] LABS: INR 2.2; Prothrombin Time 24.3 Seconds (9.4-12.1)
[2021-08-11 05:15] LABS: Basophils # 0.1 K/mcL (0.0-0.2); Basophils % 0.8 %; Eosinophils # 0.2 K/mcL (0.0-0.6); Eosinophils % 2.3 %; Hematocrit 47.9 % (37.5-50.1); Immature Granulocytes % 0.8 % (0-4); Lymphocytes # 1.8 K/mcL (0.6-4.6); Mean Corpuscular HGB Conc 31.3 g/dL (31.6-35.5); Mean Corpuscular Hemoglobin 29.5 pg (28.0-33.3); Mean Corpuscular Volume 94.3 fL (83.0-100.0); Mean Platelet Volume 10.5 fL (9.4-12.4); Monocytes # 0.6 K/mcL (0.0-1.3); Monocytes % 9.4 %; Neutrophils # 3.9 K/mcL (1.6-8.9); Platelet Count 197 K/mcL (140-400); Red Blood Count 5.08 M/mcL (4.19-5.50); Red Cell Distribution Width 15.1 % (11.5-14.5); Segmented Neutrophils % 59.7 %; White Blood Count 6.5 K/mcL (4.3-11.1)
[2021-08-11 05:25] LABS: BUN/Creatinine Ratio 16 (6-26); Blood Urea Nitrogen 16 mg/dL (8-23); Calcium 9.3 mg/dL (8.6-10.3); Carbon Dioxide 32 mEq/L (23-29); Chloride 99 mEq/L (98-107); Glucose 149 mg/dL (70-105); Osmolality,Calculated 286 (280-300); Potassium 4.9 mEq/L (3.5-5.1); Sodium 136 mEq/L (136-145); eGFR For African Americans > 60 (> 60); eGFR For Non-African Americans > 60 (> 60)
[2021-08-11] MEDS: Insulin LISPRO 300 UNITS/3 ML VIAL SUBQ SCH ×3 (08:44→17:32)
[2021-08-11] MEDS: polyethylene glycoL 3350 17 GM POWD.PACK PO SCH (08:52)
[2021-08-11] MEDS ORDERED: *HR* Warfarin 4 MG TABLET PO ONE (18:00)
[2021-08-11] MEDS: Melatonin 3 MG TABLET PO PRN (21:06)
[2021-08-11] MEDS: Sennosides/Docusate Sodium TABLET PO PRN (21:06)
[2021-08-11] MEDS: *HR* OxyCODONE/APAP 5/325 TABLET PO PRN (21:06)
[2021-08-11] MEDS: amLODIPine 5 MG TABLET PO SCH (21:06)
[2021-08-12 05:19] LABS: INR 2.3; Prothrombin Time 25.9 Seconds (9.4-12.1)
[2021-08-12] MEDS: Acetaminophen 325 MG TABLET PO SCH ×3 (05:30→17:11)
[2021-08-12] MEDS: Insulin LISPRO 300 UNITS/3 ML VIAL SUBQ SCH ×3 (08:55→17:10)
[2021-08-12] MEDS: polyethylene glycoL 3350 17 GM POWD.PACK PO SCH (08:57)
[2021-08-12] MEDS ORDERED: *HR* Warfarin 4 MG TABLET PO ONE (18:00)
[2021-08-12] MEDS: Melatonin 3 MG TABLET PO PRN (21:06)
[2021-08-12] MEDS: amLODIPine 5 MG TABLET PO SCH (21:06)
[2021-08-12] MEDS: *HR* OxyCODONE/APAP 5/325 TABLET PO PRN (21:07)
[2021-08-12] MEDS: Sennosides/Docusate Sodium TABLET PO PRN (21:07)
[2021-08-13] MEDS: Acetaminophen 325 MG TABLET PO SCH ×4 (02:25→17:50)
[2021-08-13 05:38] LABS: INR 2.9; Prothrombin Time 32.2 Seconds (9.4-12.1)
[2021-08-13] MEDS: Insulin LISPRO 300 UNITS/3 ML VIAL SUBQ SCH ×3 (07:53→16:05)
[2021-08-13] MEDS: polyethylene glycoL 3350 17 GM POWD.PACK PO SCH (08:06)
[2021-08-13] MEDS ORDERED: *HR* Warfarin 1 MG TABLET PO ONE (18:00)
[2021-08-13] MEDS: amLODIPine 5 MG TABLET PO SCH (20:05)
[2021-08-14] MEDS: Acetaminophen 325 MG TABLET PO SCH ×3 (00:22→13:07)
[2021-08-14 06:09] LABS: Hematocrit 42.1 % (37.5-50.1); Mean Corpuscular HGB Conc 31.4 g/dL (31.6-35.5); Mean Corpuscular Hemoglobin 29.3 pg (28.0-33.3); Mean Corpuscular Volume 93.6 fL (83.0-100.0); Mean Platelet Volume 10.4 fL (9.4-12.4); Platelet Count 155 K/mcL (140-400); Red Cell Distribution Width 15.5 % (11.5-14.5); White Blood Count 4.1 K/mcL (4.3-11.1)
[2021-08-14 06:11] LABS: INR 2.4; Prothrombin Time 26.9 Seconds (9.4-12.1)
[2021-08-14 06:25] LABS: Alanine Aminotransferase 22 Units/L (7-52); Albumin 2.9 g/dL (3.5-5.7); Albumin/Globulin Ratio 1.2 (1.1-2.2); Alkaline Phosphatase 130 Units/L (34-104); Aspartate Amino Transferase 15 Units/L (13-39); BUN/Creatinine Ratio 18 (6-26); Bilirubin,Total 0.7 mg/dL (0.3-1.0); Blood Urea Nitrogen 20 mg/dL (8-23); Calcium 8.5 mg/dL (8.6-10.3); Carbon Dioxide 30 mEq/L (23-29); Chloride 100 mEq/L (98-107); Globulin 2.5 g/dL (2.4-3.5); Glucose 155 mg/dL (70-105); Magnesium 1.9 mg/dL (1.6-2.6); Osmolality,Calculated 290 (280-300); Potassium 4.5 mEq/L (3.5-5.1); Sodium 137 mEq/L (136-145); Total Protein 5.4 g/dL (6.4-8.9); eGFR For African Americans > 60 (> 60); eGFR For Non-African Americans > 60 (> 60)
[2021-08-14 06:40] LABS: Hemoglobin 13.2 g/dL (12.9-16.9)
[2021-08-14 06:54] VITALS: BP 131/65; PULSE 98; RESP 17; TEMP 98.2; O2SAT 93
[2021-08-14] MEDS: polyethylene glycoL 3350 17 GM POWD.PACK PO SCH (08:13)
[2021-08-14] MEDS: Insulin LISPRO 300 UNITS/3 ML VIAL SUBQ SCH ×2 (08:13→12:15)
[2021-08-14] MEDS ORDERED: *HR* Warfarin 4 MG TABLET PO ONE (18:00)
== END 2021-08-14 13:23 | disposition home or self-care (01) ==
LOC: INPGRE 08-04 19:53
PROVIDERS: ADMIT Family Medicine; ATTEND Family Medicine